=== PATIENT | female | born 1980 | race Caucasian/White ===

== ENCOUNTER 2023-04-11 19:05 | Emergency (ER) | payer SELFPAY ==
[~2023-04-11] VITALS: Ht 162.6 cm; Wt 66.0 kg
[2023-04-11 19:09] VITALS: TEMP 98.6; O2SAT 99
[2023-04-11 19:37] LABS: CLARITY URINE CLEAR (CLEAR); COLOR URINE YELLOW (YELLOW); GLUCOSE URINE NEGATIVE (NEGATIVE); KETONES URINE NEGATIVE (NEGATIVE); LEUKOCYTE ESTERASE URINE TRACE (NEGATIVE); NITRITE URINE NEGATIVE (NEGATIVE); OCCULT BLOOD URINE NEGATIVE (NEGATIVE); PROTEIN URINE NEGATIVE (NEGATIVE); SPECIFIC GRAVITY URINE 1.007 (1.005-1.030); UROBILINOGEN URINE 0.2 E.U./dL (0.2-1.0)
[2023-04-11 19:37] LABS: DIFFERENTIAL COMMENT 1; HEMATOCRIT. 40.1 % (36.0-48.0); HEMOGLOBIN. 13.6 g/dL (12.0-16.0); MEAN CORPUSCULAR HEMOGLOBIN 28.7 pg (28.0-32.0); MEAN CORPUSCULAR VOLUME 84.3 fL (81.0-99.0); MEAN PLATELET VOLUME 9.2 fl (7.4-10.4); PLATELET 281 x1000/uL (130-400); RED BLOOD CELL COUNT 4.76 mill/uL (4.2-5.4); RED CELL DISTRIBUTION WIDTH 13.6 % (11.6-14.6); WHITE BLOOD COUNT 7.9 x1000/uL (4.5-11.0)
[2023-04-11 19:40] LABS: YEAST URINE NONE SEEN
[2023-04-11] MEDS ORDERED: KETOROLAC 60MG/2ML VIAL IM STA (19:41)
[2023-04-11] MEDS ORDERED: ONDANSETRON HCL 4MG/2ML INJ IM STA (19:41)
[2023-04-11 19:44] LABS: CHLORIDE 106 mEq/L (98-107); INDEX HEMOLYSI 1 (1-3); INDEX ICTERIC 1 (1-4); INDEX LIPEMIC 1 (1-3); POTASSIUM 3.8 mEq/L (3.5-5.1); SODIUM 135 mEq/L (136-145)
[2023-04-11 19:49] LABS: HCG SCREEN NEGATIVE
[2023-04-11 19:52] LABS: ALANINE AMINOTRANSFERASE 85 IU/L (13-61); ALBUMIN 3.7 g/dL (3.4-5.0); ASPARTATE AMINOTRANSFERASE 61 IU/L (15-37); BILIRUBIN TOTAL 0.2 mg/dL (0.1-1.0); CALCIUM 8.7 mg/dL (8.5-10.1); CARBON DIOXIDE 23 mEq/L (21-32); CREATININE 0.6 mg/dL (0.6-1.3); GLUCOSE 105 mg/dL (70-105); PROTEIN TOTAL 8.1 g/dL (6.0-8.3); UREA NITROGEN BLOOD 13 mg/dL (7-21)
[2023-04-11 20:10] LABS: BACTERIA URINE TRACE; RBC URINE 0-2 /hpf (0-2); SQUAMOUS EPITHELIAL CELL URINE FEW /lpf (RARE/1+); WBC URINE 0-2 /hpf (0-2)
[2023-04-11 20:19] LABS: PLATELET ESTIMATE NORMAL
[2023-04-11 22:33] VITALS: BP 131/85; PULSE 84; RESP 20
[2023-04-11] MEDS: KETOROLAC 60MG/2ML VIAL IM NR (22:33)
[2023-04-11] MEDS: ONDANSETRON HCL 4MG/2ML INJ IM NR (22:33)
[2023-04-12] MEDS ORDERED: ONDA4TAB50 PO (00:01)
[2023-04-12] MEDS ORDERED: SULF1TAB48 MT (00:01)
[2023-04-12] MEDS ORDERED: NAPR-681 PO (00:01)
[2023-04-12] MEDS: LIDOCAINE HCL/PF 1% 10 MG/ML 5ML VIAL INFIL NR (00:58)
[2023-04-12] MEDS: CEFTRIAXONE SODIUM 1 G/VIAL IM NR (00:58)
== END 2023-04-12 01:01 | disposition home or self-care (01) ==
LOC: ER 19:05
DX: N39.0 Urinary tract infection, site not specified (principal); R74.01 Elevation of levels of liver transaminase levels; Z98.890 Other specified postprocedural states
CPT/HCPCS: 99285; 74176; 80053; 81003; 81025; 84703; 83690; 85025; 87086; 36415; 96372 ×2; J1885; J2405; J0696; J3490